=== PATIENT | female | born 1965 | race American Indian/Alaskan Native ===

== ENCOUNTER 2020-05-26 06:34 | Outpatient (CLI) | payer BC ==
[2020-05-26 07:16] LABS: Basophils # (Auto) 0.1 K/mm3 (0.0-0.1); Basophils % (Auto) 1.2 % (0.0-1.8); Eosinophils # (Auto) 0.2 K/mm3 (0.0-0.4); Eosinophils % (Auto) 3.3 % (0.0-4.3); Hematocrit 37.7 % (30.3-42.9); Hemoglobin 12.3 gm/dl (10.1-14.3); Lymphocytes # (Auto) 2.8 K/mm3 (1.2-5.4); Lymphocytes % (Auto) 44.2 % (13.4-35.0); Mean Corpuscular HGB Conc 33 % (30-34); Mean Corpuscular Volume 74 fl (79-97); Monocytes # (Auto) 0.4 K/mm3 (0.0-0.8); Monocytes % (Auto) 6.7 % (0.0-7.3); Platelet Count 325 K/mm3 (140-440); Red Blood Count 5.11 M/mm3 (3.65-5.03); Red Cell Distribution Width 16.4 % (13.2-15.2)
[2020-05-26 07:41] LABS: Alanine Aminotransferase 24 units/L (7-56); Albumin 4.2 g/dL (3.9-5); BUN/Creatinine Ratio 16; Blood Urea Nitrogen 14 mg/dL (7-17); Calcium 9.4 mg/dL (8.4-10.2); Chol/HDL Ratio 3.41 %; HDL Cholesterol 62 mg/dL (40-59); Hemolysis Index 1; LDL Cholesterol,Direct 125 mg/dL (50-130)
== END 2020-05-26 06:35 | disposition home or self-care (01) ==
LOC: LAB 06:34
PROVIDERS: ATTEND Internal Medicine
DX: Z13.1 Encounter for screening for diabetes mellitus (principal); E78.5 Hyperlipidemia, unspecified; R79.89 Other specified abnormal findings of blood chemistry; R68.89 Other general symptoms and signs; D51.9 Vitamin B12 deficiency anemia, unspecified; R94.6 Abnormal results of thyroid function studies
CPT/HCPCS: 36415; 80053; 80061; 82306; 82607; 82747; 83036; 84443; 85025

== ENCOUNTER 2021-07-17 23:59 | Emergency (ER) | payer SELFPAY ==
[2021-07-18] MEDS ORDERED: dexAMETHasone 20 MG/5 ML VIAL IM ONE (00:27)
[2021-07-18] MEDS ORDERED: KETOROLAC 30 MG/1 ML INJ IM ONE (00:27)
[2021-07-18] MEDS ORDERED: ACETAMINOPHEN 500 MG TAB PO ONE (00:27)
--- NOTE | 2021-07-18 00:35 | Emergency Department Report ---
ED Back Pain/Injury HPI - General Stated Complaint: SCIATICA PAIN Time Seen by Provider: 07/18/21 00:27 Source: patient Mode of arrival: Ambulatory Limitations: No Limitations - History of Present Illness Initial Comments: CC: my sciatica is acting up HPI: This is a 55 yo female with hx of sciatica and migraine headache who presents with right back pain radiating to right hip. Pain began 2 weeks ago, worsened today. She recalls lifting a heavy package at that time. Sharp achy pain. No bowel or urinary incontinence. Denies leg weakness. PCP Dr. Radu FENG Complaint: back pain -: Gradual, week(s) (2 weeks ago) Similar Symptoms Previously: Yes Place: home Severity: moderate Severity scale (0 -10): 8 Quality: sharp, dull, aching Consistency: constant Worsens With: movement, walking Associated Symptoms: denies other symptoms - Related Data Home Medications Medication Instructions Recorded Confirmed Last Taken Oxycodone HCl/Acetaminophen 1 tab PO Q6H PRN 10/14/15 10/19/15 10/17/15 22:00 [Oxycodone-Acetaminophen 5-325] Previous Rx's Medication Instructions Recorded Last Taken Type Cyclobenzaprine [Flexeril] 10 mg PO TID PRN #30 tablet 07/18/21 Unknown Rx Ibuprofen [Motrin 400 MG tab] 400 mg PO TID 5 Days #15 tablet 07/18/21 Unknown Rx oxyCODONE /ACETAMINOPHEN [Percocet 1 tab PO Q6HR PRN #15 tablet 07/18/21 Unknown Rx 5/325] Allergies Allergy/AdvReac Type Severity Reaction Status Date / Time Penicillins Allergy Rash Verified 10/14/15 13:31 ED Review of Systems ROS: Stated complaint: SCIATICA PAIN Other details as noted in HPI Comment: All other systems reviewed and negative Constitutional: denies: fever Respiratory: denies: cough, shortness of breath Gastrointestinal: denies: abdominal pain, nausea, vomiting Musculoskeletal: back pain Neurological: denies: numbness, paresthesias ED Past Medical Hx - Past Medical History Previous Medical History?: Yes Hx Hypertension: No Hx Headaches / Migraines: Yes (migraines) - Surgical History Past Surgical History?: Yes Hx Cholecystectomy: Yes (1999) - Social History Smoking Status: Never Smoker Substance Use Type: None - Medications Home Medications: Home Medications Medication Instructions Recorded Confirmed Last Taken Type Oxycodone HCl/Acetaminophen 1 tab PO Q6H PRN 10/14/15 10/19/15 10/17/15 22:00 History [Oxycodone-Acetaminophen 5-325] Cyclobenzaprine [Flexeril] 10 mg PO TID PRN #30 tablet 07/18/21 Unknown Rx Ibuprofen [Motrin 400 MG tab] 400 mg PO TID 5 Days #15 tablet 07/18/21 Unknown Rx oxyCODONE /ACETAMINOPHEN [Percocet 1 tab PO Q6HR PRN #15 tablet 07/18/21 Unknown Rx 5/325] ED Physical Exam - General Limitations: No Limitations General appearance: alert, in no apparent distress - Head Head exam: Present: atraumatic, normocephalic - Eye Eye exam: Present: normal appearance - ENT ENT exam: Present: mucous membranes moist - Neck Neck exam: Present: normal inspection, full ROM - Respiratory Respiratory exam: Present: normal lung sounds bilaterally. Absent: respiratory distress, wheezes, rales, rhonchi - Cardiovascular Cardiovascular Exam: Present: regular rate, normal rhythm, normal heart sounds. Absent: systolic murmur, diastolic murmur, rubs, gallop - GI/Abdominal GI/Abdominal exam: Present: soft, normal bowel sounds. Absent: distended, tenderness, guarding, rebound - Extremities Exam Extremities exam: Present: normal inspection - Back Exam Back exam: Present: normal inspection, full ROM. Absent: tenderness, CVA tenderness (R), CVA tenderness (L) - Neurological Exam Neurological exam: Present: alert, oriented X3 - Psychiatric Psychiatric exam: Present: normal affect, normal mood - Skin Skin exam: Present: warm, dry, intact, normal color. Absent: rash ED Medical Decision Making - Medical Decision Making Lower back pain due lumbar DDD: neurovascularly intact, Mrs. Guzman received IM ketorolac, PO tylenol IM decadron in the ED Rx: percocet, flexeril, ibuprofen referred to spine surgeon Dr. Rodriguez Critical care attestation.: If time is entered above; I have spent that time in minutes in the direct care of this critically ill patient, excluding procedure time. ED Disposition Clinical Impression: Sciatica, Lumbar degenerative disc disease Disposition: HOME / SELF CARE / HOMELESS Is pt being admited?: No Does the pt Need Aspirin: No Condition: Stable Instructions: Sciatica, Degenerative Disk Disease Prescriptions: Cyclobenzaprine [Flexeril] 10 mg PO TID PRN #30 tablet PRN Reason: Muscle Spasm Ibuprofen [Motrin 400 MG tab] 400 mg PO TID 5 Days #15 tablet oxyCODONE /ACETAMINOPHEN [Percocet 5/325] 1 tab PO Q6HR PRN #15 tablet PRN Reason: Pain Referrals: JOHNNIE RODRIGUEZ II, MD [Staff Physician] - 3-5 Days Forms: Work/School Release Form(ED)
[2021-07-18] MEDS ORDERED: ONDANSETRON 4 MG/2 ML INJ ONE (03:04)
[2021-07-18] MEDS ORDERED: HYDROmorphone 1 MG/1 ML INJ ONE (03:05)
[2021-07-18] MEDS ORDERED: HYDROmorphone 1 MG/1 ML INJ IM ONE (03:13)
[2021-07-18] MEDS ORDERED: ONDANSETRON 4 MG/2 ML INJ IM ONE (03:13)
[2021-07-18 03:21] VITALS: BP 179/89
== END 2021-07-18 02:16 | disposition home or self-care (01) ==
LOC: ED 23:59
DX: M51.36 Other intervertebral disc degeneration, lumbar region (principal); M54.30 Sciatica, unspecified side; G43.909 Migraine, unspecified, not intractable, without status migrainosus; Z90.49 Acquired absence of other specified parts of digestive tract; Z88.0 Allergy status to penicillin; Z79.899 Other long term (current) drug therapy
CPT/HCPCS: 96372; 99282; J1100; J1170; J1885; J2405

== ENCOUNTER 2021-07-29 08:45 | Emergency (ER) | payer SELFPAY ==
[2021-07-29] MEDS ORDERED: KETOROLAC 30 MG/1 ML INJ IM ONE (10:34)
[2021-07-29] MEDS ORDERED: methylPREDNISolone Sod Succinate 125 MG/2 ML INJ IM ONE (10:34)
--- NOTE | 2021-07-29 10:39 | Emergency Department Report ---
ED Back Pain/Injury HPI - General Chief Complaint: Abdominal Pain Stated Complaint: RT KNEE/HIP PAIN Time Seen by Provider: 07/29/21 10:33 Source: patient Limitations: No Limitations - History of Present Illness Initial Comments: 55-year-old -[place] female presents to emergency room for sciatica flareup. Patient states that she was here Sunday having the same complaints. Patient states now she has right knee pain. States that when she was discharged she had fallen as she was returning back to her unit. That was on Sunday. Patient states she has been able to walk but has pain when she gets up but not right knee and as she walks he gets a little bit better but then when she sits back down and then attempts to get up she has more pain. Complaint: back pain Onset/Timin -: week(s) Similar Symptoms Previously: Yes Radiation: buttocks Severity scale (0 -10): 9 Quality: burning, sharp Consistency: constant Worsens With: other (Getting up to walk) Associated Symptoms: denies other symptoms - Related Data Home Medications Medication Instructions Recorded Confirmed Last Taken Oxycodone HCl/Acetaminophen 1 tab PO Q6H PRN 10/14/15 10/19/15 10/17/15 22:00 [Oxycodone-Acetaminophen 5-325] Previous Rx's Medication Instructions Recorded Last Taken Type Cyclobenzaprine [Flexeril] 10 mg PO TID PRN #30 tablet 07/18/21 Unknown Rx Ibuprofen [Motrin 400 MG tab] 400 mg PO TID 5 Days #15 tablet 07/18/21 Unknown Rx oxyCODONE /ACETAMINOPHEN [Percocet 1 tab PO Q6HR PRN #15 tablet 07/18/21 Unknown Rx 5/325] Diclofenac Potassium 50 mg PO Q8H PRN #24 tablet 07/29/21 Unknown Rx Diclofenac Sodium [Arthritis Pain 50 gm TP Q8H PRN #50 gel..gram. 07/29/21 Unknown Rx Reliever] Allergies Allergy/AdvReac Type Severity Reaction Status Date / Time Penicillins Allergy Rash Verified 10/14/15 13:31 ED Review of Systems ROS: Stated complaint: RT KNEE/HIP PAIN Other details as noted in HPI Comment: All other systems reviewed and negative ED Past Medical Hx - Past Medical History Hx Hypertension: No Hx Headaches / Migraines: Yes (migraines) - Surgical History Hx Cholecystectomy: Yes (1999) - Social History Smoking Status: Never Smoker Substance Use Type: None - Medications Home Medications: Home Medications Medication Instructions Recorded Confirmed Last Taken Type Oxycodone HCl/Acetaminophen 1 tab PO Q6H PRN 10/14/15 10/19/15 10/17/15 22:00 History [Oxycodone-Acetaminophen 5-325] Cyclobenzaprine [Flexeril] 10 mg PO TID PRN #30 tablet 07/18/21 Unknown Rx Ibuprofen [Motrin 400 MG tab] 400 mg PO TID 5 Days #15 tablet 07/18/21 Unknown Rx oxyCODONE /ACETAMINOPHEN [Percocet 1 tab PO Q6HR PRN #15 tablet 07/18/21 Unknown Rx 5/325] Diclofenac Potassium 50 mg PO Q8H PRN #24 tablet 07/29/21 Unknown Rx Diclofenac Sodium [Arthritis Pain 50 gm TP Q8H PRN #50 gel..gram. 07/29/21 Unknown Rx Reliever] ED Physical Exam - General Limitations: No Limitations General appearance: alert, in no apparent distress - Head Head exam: Present: atraumatic, normocephalic - Eye Eye exam: Present: normal appearance - ENT ENT exam: Present: mucous membranes moist - Neck Neck exam: Present: normal inspection, full ROM - Respiratory Respiratory exam: Absent: accessory muscle use ED Course Vital Signs 07/29/21 08:48 Pulse Rate 111 H Respiratory 16 Rate Blood Pressure 157/101 [Left] O2 Sat by Pulse 98 Oximetry Critical care attestation.: If time is entered above; I have spent that time in minutes in the direct care of this critically ill patient, excluding procedure time. ED Disposition Clinical Impression: Sciatica, Knee pain, left anterior Disposition: 01 HOME / SELF CARE / HOMELESS Is pt being admited?: No Does the pt Need Aspirin: No Condition: Stable Instructions: Abdominal Pain (ED), Acute Knee Pain, Adult, Sciatica Rehab- Sports[facility], Sciatica, [id number] Additional Instructions: Please take medication as prescribed. Follow-up with orthopedist. Prescriptions: Diclofenac Sodium [Arthritis Pain Reliever] 50 gm TP Q8H PRN #50 gel..gram. PRN Reason: Pain , Severe (7-10) Diclofenac Potassium 50 mg PO Q8H PRN #24 tablet PRN Reason: Pain , Severe (7-10) Referrals: RADHA BENNETT MD [Staff Physician] - 3-5 Days Forms: Work/School Release Form(ED) Time of Disposition: 11:07
[2021-07-29 11:38] VITALS: BP 137/98
== END 2021-07-29 11:45 | disposition home or self-care (01) ==
LOC: ED 08:45
DX: M54.31 Sciatica, right side (principal); M25.561 Pain in right knee; G43.909 Migraine, unspecified, not intractable, without status migrainosus; Z90.49 Acquired absence of other specified parts of digestive tract; Z79.899 Other long term (current) drug therapy
CPT/HCPCS: 96372; 99282; J1885; J2930